=== PATIENT | male | born 1980 | race Caucasian/White ===

== ENCOUNTER 2019-07-05 19:46 | Emergency (ER) | payer OTHER ==
[~2019-07-05] VITALS: Ht 167.6 cm; Wt 74.1 kg
[2019-07-05 19:51] VITALS: Ht 167.6 cm; Wt 74.1 kg
[2019-07-05] MEDS ORDERED: SINGULAIR10 MG PO (19:52)
[2019-07-05] MEDS ORDERED: NEURONTIN600 MG PO (19:52)
[2019-07-05] MEDS ORDERED: BENZTROPINE MESY2 MG PO (19:53)
[2019-07-05] MEDS ORDERED: ZYPREXA20 MG PO (19:53)
[2019-07-05] MEDS ORDERED: MINIPRESS2 MG PO (19:54)
[2019-07-05] MEDS ORDERED: CYCLOBENZAPRINE10 MG PO (19:54)
[2019-07-05] MEDS ORDERED: ATARAX 25 MG TA25 MG PO (19:55)
[2019-07-05] MEDS ORDERED: CLARITIN5 MG/5 ML PO (19:55)
[2019-07-05] MEDS ORDERED: LOVASTATIN10 MG PO (19:55)
[2019-07-05 20:30] LABS: BASOPHILS 0.8 % (0-2); EOSINOPHILS 1.9 % (0-7); HEMATOCRIT 43.1 % (42.0-54.0); HEMOGLOBIN 15.3 g/dL (13.5-17.5); IMMATURE GRANULOCYTES 0.3 % (0-5); LYMPHOCYTES 29.5 % (15-50); MCHC 35.5 g/dL (31.0-37.0); MCV 90.2 fL (80.0-100.0); MEAN PLATELET VOLUME 9.6 fL (7.4-10.4); NEUTROPHILS 59.5 % (40-80); PLATELET COUNT 203 10x3/uL (130-400); RBC 4.78 10x6/uL (4.20-6.10); RDW 12.6 % (11.5-14.5); WBC 7.5 10x3/uL (4.8-10.8)
[2019-07-05 20:39] LABS: CALC OSMOLALITY 278 mosm/kg (275-300); CALCIUM 9.2 mg/dL (8.5-10.1); CARBON DIOXIDE 28.1 mmol/L (21.0-32.0); CHLORIDE - SERUM 102 mmol/L (98-107); CREATININE - SERUM 1.4 mg/dL (0.6-1.3); GLUCOSE 111 mg/dL (74-106); POTASSIUM - SERUM 4.2 mmol/L (3.5-5.1); SODIUM 140 mmol/L (136-145); UREA NITROGEN 10 mg/dL (7-18); eGFR NON AFRICAN AMERICAN 60 mL/min (90-120)
[2019-07-05 20:54] LABS: ALBUMIN 3.7 g/dL (3.4-5.0); ALKALINE PHOSPHATASE 170 U/L (46-116); ALT (SGPT) 318 U/L (10-68); BILIRUBIN - TOTAL 0.29 mg/dL (0.2-1.3); LIPASE 150 U/L (73-393); PROTEIN - SERUM 7.6 g/dL (6.4-8.2); TROPONIN-I < 0.017 ng/mL (0.000-0.060)
--- NOTE | 2019-07-05 21:06 | NUR ---
DR ABARCA NOTIFIED AND REVIEWED PT's BEHAVIOR AND ASSESSMENT RESULTS. PT IS A LOW RISK PER DR ABARCA. DR ABARCA STATED TO GIVE RESOURCES TO PT AT TIME OF DISCHARGE. NO FURTHER ORDERS AT THIS TIME. RESOURCESREVIEWED WITH PT AND HE VERBALIZED UNDERSTANDING.
[2019-07-05 21:45] LABS: APPEARANCE CLEAR (CLEAR); BILIRUBIN NEGATIVE (NEGATIVE); COLOR YELLOW (YELLOW); GLUCOSE NEGATIVE (NEGATIVE); KETONE NEGATIVE (NEGATIVE); NITRITE NEGATIVE (NEGATIVE); PROTEIN NEGATIVE (NEGATIVE); UROBILINOGEN NORMAL (NORMAL)
[2019-07-05] MEDS ORDERED: OMEPRAZOLE20 M1 PO (22:23)
[2019-07-05 23:51] VITALS: BP 128/59
== END 2019-07-05 23:51 | disposition home or self-care (01) ==
LOC: D.ER 19:46
PROVIDERS: Family Medicine
DX: R10.13 Epigastric pain (principal); N28.9 Disorder of kidney and ureter, unspecified

== ENCOUNTER 2020-12-30 16:19 | Emergency (ER) | payer OTHER ==
[~2020-12-30] VITALS: Ht 167.6 cm; Wt 76.8 kg
[~2020-12-30 16:19] MED LIST: ATARAX 25 MG TA25 MG PO; BENZTROPINE MESY2 MG PO; CLARITIN5 MG/5 ML PO; CYCLOBENZAPRINE10 MG PO; LOVASTATIN10 MG PO; MINIPRESS2 MG PO; NEURONTIN600 MG PO; OMEPRAZOLE20 M1 PO; SINGULAIR10 MG PO; ZYPREXA20 MG PO
[2020-12-30 16:52] VITALS: Ht 167.6 cm; Wt 76.8 kg
[2020-12-30] MEDS ORDERED: ULTRAM50 MG PO (19:57)
[2020-12-30] MEDS ORDERED: NAPROSYN500 MG PO (19:57)
[2020-12-30] MEDS ORDERED: PREDNISONE20 MG PO (19:57)
[2020-12-30 20:32] VITALS: BP 118/84
== END 2020-12-30 20:37 | disposition home or self-care (01) ==
LOC: D.ER 16:19
DX: M25.562 Pain in left knee (principal); M79.605 Pain in left leg